=== PATIENT | male | born 1985 | race Caucasian/White ===

== ENCOUNTER 2018-05-20 15:51 | Inpatient (IN) | payer BC ==
[~2018-05-20] VITALS: Ht 190.5 cm; Wt 113.6 kg
--- NOTE | ~2018-05-20 | OP ---
PATIENT NAME: KAVITA BUCIO MEDICAL RECORD: [id number] :89 LOCATION:[id number] ADMISSION DATE:05/20/18 SURGEON: EULA FRANCIS MD DATE OF OPERATION: 05/20/2018 PREOPERATIVE DIAGNOSIS: Acute appendicitis. POSTOPERATIVE DIAGNOSIS: Acute appendicitis without localized peritonitis and without abscess or rupture. PROCEDURE: Laparoscopic appendectomy. SURGEON: Eula Francis MD ANATOMY PROFESSOR: None. BLOOD LOSS: Minimal. ANESTHESIA: General. COMPLICATIONS: None. The risks, possible complications, and alternatives to the procedure were explained to the patient. He elects to proceed. OPERATIVE COURSE: The patient was conveyed to the operating room emergently on 05/20/2018. General anesthesia was induced by the anesthesia staff. The abdomen was sterilely prepped and draped. A small skin tristan was accomplished in the left upper quadrant. Veress needle was inserted through the skin tristan into the peritoneal cavity. CO2 insufflation was begun. Once a sufficient pneumoperitoneum had been achieved, a 5-mm trocar was inserted through an incision in the left lower quadrant. Under direct internal vision, utilizing a television camera, a 12-mm trocar was inserted through an incision at the umbilicus. Another 5-mm trocar was inserted through an incision in the right groin. During insertion of the Veress needle and all trocars, there appeared to have been no injury to the bowels, any intraperitoneal or retroperitoneal structures. An abdominal survey was undertaken. The liver was of normal size. The gallbladder was not acutely inflamed. The appendix did appear acutely inflamed. However, there was no peritonitis present on the abdominal side wall. No evidence of perforation or gangrene or abscess. The appendix was adhesed to the retroperitoneum. I took down these adhesions as well as some adhesions from the ileum to the retroperitoneum with the laparoscopic EnSeal device. At no time was there any apparent injury to the bowels during this process. I then took down the mesoappendix utilizing the laparoscopic EnSeal device. I then stapled across the tip of the cecum with an Endo-PHILLY type stapler utilizing a blue load. The appendix was placed within a bag retrieval device. It was then withdrawn out through the umbilical fascia defect. OPERATIVE REPORT [id number] KAVITA BUCIO The 12-mm trocar was replaced and the abdomen reinsufflated. I irrigated and aspirated the right lower quadrant. There was no bleeding even at low pressure of 8. A topical hemostatic agent was added to the mesoappendiceal remnant for additional hemostasis. The 12-mm trocar was removed. The fascia at the umbilicus was closed with multiple interrupted 0 Vicryls. All the trocars were removed and the abdomen desufflated. The skin at the umbilicus was closed with interrupted 4-0 Vicryl Rapide sutures. The other skin incisions were closed with interrupted intracuticular 3-0 Vicryls. Benzoin and Steri-Strips were applied. The patient was then extubated and conveyed to the post-anesthesia care unit where he was in stable condition. TRANSINT:[id number] Voice Confirmation ID: [id number] DOCUMENT ID: [id number] EULA FRANCIS MD CC: AURELIO RESTREPO MD and RADHA MYRICK DO [id number] DICTATION DATE: 05/20/182208 KEYBOARD OPERATOR: 05/21/18 0245 ADM IN [facility] [address] [id number]
[2018-05-20] MEDS ORDERED: ATIVAN0.5 MG PO (16:50)
[2018-05-20 16:51] VITALS: BP 125/74; BMI 31.3
[2018-05-20 17:24] LABS: BASOPHILS 0.2 % (0-2); EOSINOPHILS 3.7 % (0-7); HEMATOCRIT 45.5 % (42.0-54.0); HEMOGLOBIN 16.6 g/dL (13.5-17.5); IMMATURE GRANULOCYTES 0.2 % (0-5); LYMPHOCYTES 23.1 % (15-50); MCH 31.8 pg (26.0-34.0); MCHC 36.5 g/dL (31.0-37.0); MCV 87.2 fL (80.0-100.0); MEAN PLATELET VOLUME 10.7 fL (7.4-10.4); MONOCYTES 12.4 % (2-11); NEUTROPHILS 60.4 % (40-80); PLATELET COUNT 242 10x3/uL (130-400); RBC 5.22 10x6/uL (4.20-6.10); RDW 12.2 % (11.5-14.5); WBC 8.9 10x3/uL (4.8-10.8)
[2018-05-20 17:44] LABS: ALKALINE PHOSPHATASE 139 U/L (46-116); ALT (SGPT) 42 U/L (10-68); BILIRUBIN - TOTAL 1.07 mg/dL (0.2-1.3); CALC OSMOLALITY 279 mosm/kg (275-300); CALCIUM 9.1 mg/dL (8.5-10.1); CARBON DIOXIDE 29.3 mmol/L (21.0-32.0); CHLORIDE - SERUM 104 mmol/L (98-107); CREATININE - SERUM 1.1 mg/dL (0.6-1.3); GLUCOSE 98 mg/dL (74-106); POTASSIUM - SERUM 3.9 mmol/L (3.5-5.1); PROTEIN - SERUM 7.8 g/dL (6.4-8.2); SODIUM 141 mmol/L (136-145); UREA NITROGEN 9 mg/dL (7-18); eGFR NON AFRICAN AMERICAN 83 mL/min (90-120)
[2018-05-20 19:54] VITALS: Ht 190.5 cm; Wt 113.6 kg
[2018-05-20 20:00] VITALS: BP 121/78
--- NOTE | 2018-05-20 21:54 | NUR ---
PT C/O RIGHT TESTICULAR PAIN. DR FRANCIS NOTIFIED AND CAME BACK TO EXAMINE PATIENT. DR. FRANCIS STATES HE BELIEVES THIS IS DUE TO SUBCUTANEOUS AIR AND SHOULD SUBSIDE ON IT'S OWN.
--- NOTE | 2018-05-20 21:55 | NUR ---
ICE PACK APPLIED TO GROIN.
[2018-05-20 22:21] VITALS: BP 137/79
--- NOTE | 2018-05-20 22:37 | NUR ---
RETURNED FROM RR ROOM. ALERT,ORIENTED. COMTINUES TO HAVE TESTICULAR PAIN STATES' NO BAD NOW'.IV TO LAC INTACT WITHOUT REDNESS OR EDEMA NOTED. STERI STRIPS INTACT TO ABD LAP INCISION. NO DRAINAGE NOTED. FAMILY AT BEDSIDE.
[2018-05-21] VITALS: BP 134/75
--- NOTE | 2018-05-21 03:33 | NUR ---
I have reviewed this patient and I concur with the Shift Assessment completed by the Licensed Practical Nurse today this shift.
[2018-05-21 04:00] VITALS: BP 114/61
[2018-05-21 04:02] LABS: BASOPHILS 0.1 % (0-2); EOSINOPHILS 0.1 % (0-7); HEMATOCRIT 45.4 % (42.0-54.0); HEMOGLOBIN 16.2 g/dL (13.5-17.5); IMMATURE GRANULOCYTES 0.2 % (0-5); LYMPHOCYTES 5.4 % (15-50); MCH 31.5 pg (26.0-34.0); MCHC 35.7 g/dL (31.0-37.0); MCV 88.3 fL (80.0-100.0); MEAN PLATELET VOLUME 10.8 fL (7.4-10.4); MONOCYTES 2.1 % (2-11); NEUTROPHILS 92.1 % (40-80); PLATELET COUNT 260 10x3/uL (130-400); RBC 5.14 10x6/uL (4.20-6.10); RDW 12.2 % (11.5-14.5)
[2018-05-21 04:09] LABS: WBC 15.1 10x3/uL (4.8-10.8)
[2018-05-21 04:19] LABS: ALBUMIN 3.8 g/dL (3.4-5.0); ALKALINE PHOSPHATASE 134 U/L (46-116); ALT (SGPT) 38 U/L (10-68); BILIRUBIN - TOTAL 0.86 mg/dL (0.2-1.3); CALC OSMOLALITY 275 mosm/kg (275-300); CALCIUM 8.7 mg/dL (8.5-10.1); CARBON DIOXIDE 25.7 mmol/L (21.0-32.0); CHLORIDE - SERUM 100 mmol/L (98-107); CREATININE - SERUM 1.2 mg/dL (0.6-1.3); MAGNESIUM - SERUM 1.8 mg/dL (1.8-2.4); PHOSPHOROUS 3.1 mg/dL (2.5-4.9); POTASSIUM - SERUM 4.3 mmol/L (3.5-5.1); PROTEIN - SERUM 7.9 g/dL (6.4-8.2); SODIUM 137 mmol/L (136-145); UREA NITROGEN 11 mg/dL (7-18); eGFR NON AFRICAN AMERICAN 75 mL/min (90-120)
[2018-05-21 04:20] LABS: GLUCOSE 156 mg/dL (74-106)
[2018-05-21 08:33] VITALS: BP 119/75
--- NOTE | 2018-05-21 10:55 | NUR ---
MORNING ASSESSMENT COMPLETE. SEE ASSESSMENT FLOWSHEET FOR FURTHER DETAILS. PT LYING IN BED AAOX4 TO PERSON, PLACE, TIME AND SITUATION. DENIES NEEDS AT THIS TIME. CL IN REACH. SIDE RAILS UP X3 FOR PT SAEFTY. BED IN LOWEST POSITION.
[2018-05-21] MEDS ORDERED: MIRALAX17 GM PO (11:10)
[2018-05-21] MEDS ORDERED: COLACE100 MG PO (11:26)
[2018-05-21] MEDS ORDERED: HYDROCODON-ACE1 EAC7 PO (11:26)
[2018-05-21 11:46] VITALS: BP 139/79
== END 2018-05-21 13:43 | disposition home or self-care (01) | DRG 343 ==
LOC: D.MS 15:51
PROVIDERS: Family Medicine; Surgery; ADMIT Internal Medicine Nephrology; ATTEND Internal Medicine Nephrology
PROC: 0DTJ4ZZ Resection of Appendix, Percutaneous Endoscopic Approach (ICD-10-PCS; principal; 2018-05-20 20:03)
DX: K35.80 Unspecified acute appendicitis (principal)